=== PATIENT | female | born 1980 | race African-American/Black ===

== ENCOUNTER 2018-02-27 16:46 | Emergency (ER) | payer MEDICAID ==
[~2018-02-27] VITALS: Ht 172.7 cm; Wt 89.4 kg
[2018-02-27 16:48] VITALS: BP 146/94
[2018-02-27] MEDS ORDERED: OXYcodone/APAP 5/325MG TABLET ONE (17:16)
[2018-02-27] MEDS ORDERED: ONDANSETRON ODT 4 MG ONE (17:16)
[2018-02-27] MEDS ORDERED: OXYcodone/APAP 5/325MG TABLET PO ONE (17:30)
[2018-02-27] MEDS ORDERED: ONDANSETRON ODT 4 MG PO ONE (17:30)
[2018-02-27] MEDS ORDERED: PLEASE ENTER ALLERGIES MC SCH (17:30)
== END 2018-02-27 18:04 | disposition home or self-care (01) ==
LOC: ED 17:15
DX: S62.324A Displaced fracture of shaft of fourth metacarpal bone, right hand, initial encounter for closed fracture (principal); X58.XXXA Exposure to other specified factors, initial encounter; Y93.89 Activity, other specified; Y92.009 Unspecified place in unspecified non-institutional (private) residence as the place of occurrence of the external cause; Y99.8 Other external cause status
CPT/HCPCS: 29125; 99283; Q0162